=== PATIENT | female | born 1950 | race Caucasian/White ===

== ENCOUNTER 2024-04-22 05:00 | Day surgery (SDC) | payer MEDICARE, BC ==
[~2024-04-22 05:00] MED LIST: Sodium Chloride 0.9% 10 ML Syringe FLUSH PRN; Sodium Chloride 0.9% 10 ML Syringe FLUSH SCH
[2024-04-22] MEDS: Lactated Ringers 1,000 ML IV SCH (06:00)
[2024-04-22] MEDS ORDERED: fentaNYL 100 MCG/2 ML SDV ONE (06:29)
[2024-04-22] MEDS ORDERED: Propofol 200 MG/20 ML SDV ONE (06:30)
[2024-04-22] MEDS ORDERED: Ondansetron 4 MG/2 ML SDV ONE (07:11)
[2024-04-22] MEDS ORDERED: Metoprolol Tartrate 5 MG/5 ML SDV ONE (07:14)
[2024-04-22] MEDS ORDERED: Midazolam 1 MG/ML 2 ML SDV ONE (07:15)
[2024-04-22] MEDS: Bupivacaine 0.25% 10 ML SDV ONE (07:19)
[2024-04-22] MEDS: Lidocaine 1% 10 ML MDV ONE (07:19)
== END 2024-04-22 09:40 | disposition home or self-care (01) ==
LOC: JD.SDS 05:00
PROVIDERS: ATTEND Orthopaedic Surgery
DX: M65.841 Other synovitis and tenosynovitis, right hand (principal); M65.331 Trigger finger, right middle finger; I10 Essential (primary) hypertension; K21.9 Gastro-esophageal reflux disease without esophagitis; E78.2 Mixed hyperlipidemia; E66.9 Obesity, unspecified; Z68.34 Body mass index [BMI] 34.0-34.9, adult; Z79.82 Long term (current) use of aspirin; Z79.899 Other long term (current) drug therapy
CPT/HCPCS: 26055; J0665; J2250; J2405; J2704; J3010; J3490; J7120; 01810; 99100